=== PATIENT | male | born 1950 | race Caucasian/White ===

== ENCOUNTER 2018-05-26 14:44 | Emergency (ER) | payer OTHER, BC ==
[~2018-05-26] VITALS: Ht 177.8 cm; Wt 90.7 kg
[~2018-05-26 14:44] MED LIST: ACT15 PO; ALDACTONE25 MG PO; AMA1 PO; BD LACTINEX1.4 MG PO; BENICAR HCT1 TA1 PO; CRESTOR PO; CRESTOR5 M1 PO; DILANTIN100 MG PO; GLIMEPIRIDE2 M1 PO; GLUMETZA PO; GOOD SENSE ASPI81 M3 PO; JANUMET1 TAB PO; KEP500 PO; KEPPRA1000 M1 PO; KEPPRA500 MG PO; KLOR-CON M1010 MEQ PO; LASIX20 MG PO; LEVAQUIN750 MG PO; LOVAZA PO; SPIRIVA PO; TRIBENZOR PO; TRILIPIX PO; VIT D2 PO
[2018-05-26 14:48] VITALS: Ht 177.8 cm; Wt 90.7 kg
[2018-05-26] MEDS ORDERED: JANUMET 50-1,01 EACH PO (15:30)
[2018-05-26] MEDS ORDERED: OLMESARTAN MEDO20 MG PO (15:32)
[2018-05-26] MEDS ORDERED: EZETIMIBE10 M2 PO (15:32)
[2018-05-26] MEDS ORDERED: KEPPRA500 MG PO (15:33)
[2018-05-26] MEDS ORDERED: CRESTOR5 M1 PO (15:33)
[2018-05-26 15:34] LABS: BASOPHIL % 0.5 % (0-2); PLATELET COUNT 313 x10^3mcL (130-400); RED CELL DISTRIBUTION WIDTH 13.9 % (11.5-14.5)
[2018-05-26] MEDS ORDERED: DILANTIN100 MG PO (15:34)
[2018-05-26 15:41] LABS: CALCIUM 8.9 mg/dL (8.5-10.1); CARBON DIOXIDE 20.5 mmol/L (21-32); CHLORIDE SERUM 101 mmol/L (98-107); CREATININE SERUM 1.1 mg/dL (0.7-1.3); GFR1 > 60 mL/min; GLUCOSE SERUM 258 mg/dL (74-106); POTASSIUM SERUM 3.6 mmol/L (3.5-5.1); SODIUM SERUM 139 mmol/L (136-145)
[2018-05-26 15:46] LABS: ALBUMIN 3.8 g/dL (3.4-5.0); ALKALINE PHOSPHATASE 75 U/L (46-116); ALT/SGPT 23 U/L (16-63); AST/SGOT 13 U/L (15-37); BILIRUBIN TOTAL 0.1 mg/dL (0.20-1.00); TOTAL PROTEIN, SERUM 6.4 g/dL (6.4-8.2)
[2018-05-26 19:38] VITALS: BP 121/69
== END 2018-05-26 19:38 | disposition home or self-care (01) ==
LOC: ED 14:44
PROVIDERS: Emergency Medicine
DX: R56.9 Unspecified convulsions (principal); I11.9 Hypertensive heart disease without heart failure; I50.9 Heart failure, unspecified; E11.9 Type 2 diabetes mellitus without complications; E78.00 Pure hypercholesterolemia, unspecified
CPT/HCPCS: Q0092